=== PATIENT | male | born 1945 | race Caucasian/White ===

== ENCOUNTER 2018-01-05 14:04 | Outpatient (CLI) | payer OTHER | END 2018-01-05 14:10 | disposition home or self-care (01) | LOC: NUCLEAR 14:04 | DX: M81.0 Age-related osteoporosis without current pathological fracture (principal) ==

== ENCOUNTER 2018-04-11 09:31 | Outpatient (CLI) | payer OTHER | END 2018-04-11 10:30 | disposition home or self-care (01) | LOC: NUCLEAR 09:31 | DX: E23.1 Drug-induced hypopituitarism (principal); R94.6 Abnormal results of thyroid function studies | CPT/HCPCS: 78070; A9500 ==

== ENCOUNTER 2024-10-10 18:52 | Inpatient (IN) | payer OTHER ==
[~2024-10-10] VITALS: Ht 152.4 cm; Wt 81.6 kg
--- NOTE | 2024-10-10 19:43 | NUR ---
PTE ALERTA Y ORIENTADO X 3 ESFERAS EN [place] DE [place] EN COMPANIA DE FAMILIAR QUIEN REFIERE PTE CON FALLO RENAL POR LABS REALIZADOS EN EL ANKIT DE HOY.PTE REFIERE DOLOR EN TODO EL CUERPO Y SE OBSERVAN AMBAS PIERNAS EDEMATOSAS.SE PRESENTA PTE A DRA SCHULTZ.
[2024-10-10] MEDS ORDERED: COZAAR25 MG (19:46)
[2024-10-10] MEDS ORDERED: TOPROL XL50 M1 (19:46)
--- NOTE | 2024-10-10 20:48 | NUR ---
SE UBICA A PTE EN CAMA EN POSICION SEMI SENTADA. SE CONECTA A MONITOR CARADIACO Y OXIMETRIA. PTE ALERTA Y ORIENTADA X3, SE BEATRIS S/V. SE CANALIZA A PTE EN BRAZO IZQ Y SE BEATRIS MUESTRAS DE LABORATORIO DMITRY ORDEN MEDICA, BAJO MEDIDAS ASEPTICAS. SE ORIENTA A PTE QUIEN REFIERE ENTENDER Y ACEPTAR. SE REALIZA EKG A DR. SCHULTZ Y SE PRESENTA. SE MANTIENE BAJO OBSERVACION POR CAMBIO A PTE.
[2024-10-10 20:49] LABS: ABG PH 7.279 (7.35-7.45); ABG PO2 117.7 mmHg (80-100); ABG pCO2 20.2 mmHg (35-45); BICARBONATE 9.3 mmol/l (23-25); SaO2 97.6 %; Tco2 9.9 mmol/l
[2024-10-10 20:49] LABS: HEMATOCRIT 32.6 % (39.0-48.0); HEMOGLOBIN 10.1 g/dL (13-16.00); MEAN CELL VOLUME 82.4 fL (80.0-100.00); MEAN CORPUSCULAR HEMOGLOBIN 25.6 pg (27.00-32.0); PLATELET COUNT 331 K/uL (150-450); RED BLOOD COUNT 3.96 M/uL (4.00-6.00); RED CELL DISTRIBUTION WIDTH 18.7 % (11.5-14.5)
[2024-10-10 21:03] LABS: INR 1.21
[2024-10-10 21:14] LABS: ALBUMIN 2.6 gm/dL (3.4-5.0); BILIRUBIN TOTAL 0.37 mg/dL (0.3-1.2); BILIRUBIN,CONJUGATED 0.13 mg/dL (0.0-0.2); BILIRUBIN,UNCONJUGATED 0.24 mg/dL (0.0-0.6); CALCIUM 8.8 mg/dL (8.5-10.1); GLOBULINA 4.1 G/DL (2.4-3.5); TOTAL PROTEIN 6.7 gm/dL (6.4-8.2)
[2024-10-10 21:22] LABS: GFR 10.6
[2024-10-10 21:23] LABS: CREATININE SERUM 5.24 mg/dL (0.70-1.30); POTASSIUM 7.62 mEq/L (3.5-5.1)
[2024-10-10 21:26] LABS: allen test SATISFACTORY; o2 21 %; puncture site RADIAL RIGHT
[2024-10-10] MEDS ORDERED: SODIUM BICARBONATE 50 MEQ in SODIUM CHLORIDE 0.45 % 1,000 ML IV SCH (21:45)
[2024-10-10] MEDS ORDERED: INSULIN REGULAR, HUMAN 1,000 UNIT/10 ML UNITS IV ONE (21:45)
[2024-10-10] MEDS ORDERED: DEXTROSE 50 % IN WATER 0.5 G/ML VIAL IV ONE (21:45)
[2024-10-10] MEDS ORDERED: DEXTROSE 50 % IN WATER 0.5 G/ML DISP.SYRIN IV ONE (21:55)
[2024-10-10] MEDS ORDERED: CALCIUM GLUCONATE 100 MG/ML VIAL ONE (21:55)
[2024-10-10] MEDS ORDERED: SODIUM BICARBONATE 50MEQ/50ML VIAL IV ONE (21:56)
[2024-10-10] MEDS ORDERED: INSULIN REGULAR, HUMAN 1,000 UNIT/10 ML UNITS ONE (21:57)
[2024-10-10] MEDS ORDERED: CALCIUM GLUCONATE 100 MG/ML VIAL IV ONE (22:00)
[2024-10-10] MEDS ORDERED: SODIUM POLYSTYRENE SULFONATE 15 G/4 TSP TSP PO ONE (22:00)
[2024-10-10 22:11] LABS: URINE APPEARANCE Clear; URINE BILIRRUBIN Negative (NEGATIVE); URINE BLOOD Small; URINE COLOR Yellow; URINE GLUCOSE Negative (NEGATIVE); URINE KETONE Negative (NEGATIVE); URINE LEUKOCYTE Negative; URINE NITRATE Negative; URINE PROTEIN 30 (NEGATIVE); URINE UROBILINOGEN 0.2 E.U./dl
[2024-10-10 22:15] LABS: URINE BACTERIA 70.9 uL (0.0-1933); URINE WBC 27.3 uL (0.0-23.2)
[2024-10-10 22:26] LABS: URINE CAST 0.88 uL (0.0-1.40)
[2024-10-10] MEDS ORDERED: CEFTRIAXONE SODIUM 2,000 MG in 0.9 % SODIUM CHLORIDE 100 ML IV SCH (23:21)
[2024-10-10] MEDS ORDERED: SODIUM POLYSTYRENE SULFONATE 15 G/4 TSP TSP PO SCH (23:22)
[2024-10-10] MEDS ORDERED: ACETAMINOPHEN 500 MG GEL..CAP PO PRN (23:30)
[2024-10-10] MEDS ORDERED: 0.9 % SODIUM CHLORIDE 1,000 ML IV SCH (23:30)
[2024-10-11 00:24] VITALS: BP 138/57
[2024-10-11] MEDS ORDERED: CEFTRIAXONE SODIUM 2,000 MG VIAL ONE (03:33)
[2024-10-11 04:52] LABS: MAGNESIUM 1.6 mg/dL (1.8-2.4)
[2024-10-11 07:30] VITALS: BP 113/76; O2SAT 100
[2024-10-11] MEDS ORDERED: SODIUM BICARBONATE 50MEQ/50ML VIAL IV ONE ×2 (08:03→16:26)
[2024-10-11 08:38] LABS: CALCIUM 8.6 mg/dL (8.5-10.1)
[2024-10-11 08:40] LABS: GFR 11.49
[2024-10-11 08:41] LABS: POTASSIUM 7.42 mEq/L (3.5-5.1)
[2024-10-11 08:42] LABS: CREATININE SERUM 4.89 mg/dL (0.70-1.30)
[2024-10-11] MEDS ORDERED: METOPROLOL SUCCINATE 25 MG TAB.SR.24H PO SCH (09:00)
[2024-10-11] MEDS ORDERED: SODIUM POLYSTYRENE SULFONATE 30G/8 TSP PO SCH ×2 (09:00→16:00)
[2024-10-11] MEDS ORDERED: ENOXAPARIN SODIUM 80 MG/0.8 ML SYRINGE SUBCUTANEO SCH (09:00)
[2024-10-11] MEDS ORDERED: PANTOPRAZOLE SODIUM 40 MG/VIAL VIAL IV SCH (09:00)
[2024-10-11] MEDS ORDERED: CHLORHEXIDINE GLUCONATE 120 ML BOTTLE TOP ONE (11:45)
[2024-10-11] MEDS ORDERED: AZTREONAM 1,000 MG VIAL IV SCH (13:59)
[2024-10-11 14:46] LABS: CALCIUM 8.7 mg/dL (8.5-10.1)
[2024-10-11 14:51] LABS: GFR 11.91
[2024-10-11 14:52] LABS: POTASSIUM 7.09 mEq/L (3.5-5.1)
[2024-10-11 14:53] LABS: CREATININE SERUM 4.74 mg/dL (0.70-1.30)
[2024-10-11] MEDS ORDERED: LACTULOSE 20 G/30 ML BLIST.PACK PO STA (14:58)
[2024-10-11] MEDS ORDERED: SODIUM BICARBONATE 50MEQ/50ML VIAL IV STA (14:59)
[2024-10-11 15:00] VITALS: BP 130/58; O2SAT 100
[2024-10-11] MEDS ORDERED: LACTULOSE 20 G/30 ML BLIST.PACK ONE (16:25)
[2024-10-11 23:15] VITALS: BP 104/59; O2SAT 100
[2024-10-12] VITALS (11 sets, daily range): BP systolic 94–120; BP diastolic 50–78; O2SAT 98–100
[2024-10-12 06:48] LABS: ALBUMIN 1.8 gm/dL (3.4-5.0); PHOSPHOROUS 4.7 mg/dL (2.5-4.9)
[2024-10-12 07:23] LABS: GFR 13.11
[2024-10-12 07:24] LABS: CREATININE SERUM 4.36 mg/dL (0.70-1.30); POTASSIUM 6.23 mEq/L (3.5-5.1)
[2024-10-12] MEDS ORDERED: 0.9 % SODIUM CHLORIDE 1,000 ML IV SCH (08:00)
[2024-10-12] MEDS ORDERED: SODIUM BICARBONATE 100 MEQ in DEXTROSE 5 % IN WATER 250 ML IV SCH (08:00)
[2024-10-12] MEDS ORDERED: FUROsemide 20 MG/2 ML VIAL IV STA (08:04)
[2024-10-12] MEDS ORDERED: ACETAMINOPHEN 500 MG GEL..CAP PO PRN (08:11)
[2024-10-12] MEDS ORDERED: CHLORHEXIDINE GLUCONATE 120 ML BOTTLE TOP ONE (08:54)
[2024-10-12] MEDS ORDERED: CITRIC ACID/SODIUM CITRATE 30 ML BLIST.PACK PO SCH (09:00)
[2024-10-12] MEDS ORDERED: AMINO ACIDS/PROTEIN HYDROLYS 30 ML BLIST.PACK PO SCH (09:00)
[2024-10-12] MEDS ORDERED: SODIUM POLYSTYRENE SULFONATE 30G/8 TSP PO SCH (09:00)
[2024-10-12] MEDS ORDERED: APIXABAN 2.5 MG TABLET PO SCH (09:00)
[2024-10-12] MEDS ORDERED: CALCITRIOL 0.25 MCG CAPSULE PO SCH (09:00)
[2024-10-12] MEDS ORDERED: FLUDROCORTISONE ACETATE 0.1 MG TABLET PO SCH (09:36)
[2024-10-12] MEDS ORDERED: DEXTROSE 5 % AND 0.9 % NACL 1,000 ML IV SCH (09:45)
[2024-10-12 10:32] LABS: ABG PH 7.365 (7.35-7.45); ABG PO2 102.7 mmHg (80-100); ABG pCO2 25.7 mmHg (35-45); BICARBONATE 14.4 mmol/l (23-25); SaO2 97.4 %; Tco2 15.2 mmol/l
[2024-10-12] MEDS ORDERED: Calcium Acetate 667 MG CAP PO SCH (11:00)
[2024-10-12] MEDS ORDERED: SODIUM BICARBONATE 50MEQ/50ML VIAL IV ONE (11:04)
[2024-10-12 11:54] LABS: allen test SATISFACTORY; o2 28 %; puncture site RADIAL RIGHT
[2024-10-13 04:05] VITALS: BP 110/60; O2SAT 100
[2024-10-13] MEDS ORDERED: SODIUM BICARBONATE 50MEQ/50ML VIAL IV ONE (04:59)
[2024-10-13 07:16] VITALS: BP 109/60; O2SAT 100
[2024-10-13] MEDS ORDERED: NOREPINEPHRINE BITARTRATE 1 MG/ML AMPUL IV ONE (07:41)
[2024-10-13 08:25] LABS: FERRITIN 143.8 NG/ML (26-388)
[2024-10-13 08:28] LABS: ALBUMIN 1.6 gm/dL (3.4-5.0); BILIRUBIN TOTAL 0.26 mg/dL (0.3-1.2); CALCIUM 7.9 mg/dL (8.5-10.1); CREATININE SERUM 3.63 mg/dL (0.70-1.30); GFR 16.2; GLOBULINA 3.3 G/DL (2.4-3.5); POTASSIUM 4.44 mEq/L (3.5-5.1); TOTAL PROTEIN 4.9 gm/dL (6.4-8.2)
[2024-10-13 08:36] LABS: MEAN CELL VOLUME 80.5 fL (80.0-100.00); MEAN CORPUSCULAR HGB CONC 32.5 g/dl (32.0-36.0); PLATELET COUNT 279 K/uL (150-450); RED BLOOD COUNT 2.86 M/uL (4.00-6.00); RED CELL DISTRIBUTION WIDTH 18.3 % (11.5-14.5)
[2024-10-13 08:42] LABS: MEAN CORPUSCULAR HEMOGLOBIN 26.2 pg (27.00-32.0)
[2024-10-13 08:43] LABS: HEMOGLOBIN 7.5 g/dL (13-16.00)
[2024-10-13] MEDS ORDERED: CHLORHEXIDINE GLUCONATE 120 ML BOTTLE TOP ONE (10:10)
[2024-10-13] MEDS ORDERED: SODIUM CHLORIDE 0.45 % 1,000 ML IV SCH (11:15)
[2024-10-13] MEDS ORDERED: FUROsemide 20 MG/2 ML VIAL IV SCH (11:15)
[2024-10-13 15:27] LABS: ABG PH 7.338 (7.35-7.45); ABG PO2 114.1 mmHg (80-100); ABG pCO2 30.9 mmHg (35-45); BASE EXCESS -8.2 mmol/l; BICARBONATE 16.3 mmol/l (23-25); SaO2 97.9 %; Tco2 17.2 mmol/l
[2024-10-13 15:31] LABS: o2 28 %
[2024-10-13 15:32] LABS: allen test SATISFACTORY; puncture site RADIAL LEFT
[2024-10-13 15:37] VITALS: BP 113/67; O2SAT 100
[2024-10-13] MEDS ORDERED: DEXTROSE 5%-WATER 250ML IV.SOLN ONE ×2 (16:49→16:50)
[2024-10-13] MEDS ORDERED: CITRIC ACID/SODIUM CITRATE 30 ML BLIST.PACK PO SCH (17:00)
[2024-10-13 18:51] LABS: ob NEGATIVE (NEGATIVE)
[2024-10-13 20:00] VITALS: BP 115/64; O2SAT 100
[2024-10-13 23:12] VITALS: BP 115/66; O2SAT 99
[2024-10-14 04:00] VITALS: BP 94/47; O2SAT 100
[2024-10-14 07:13] VITALS: BP 108/54; O2SAT 100
[2024-10-14 12:04] VITALS: BP 100/50; O2SAT 100
[2024-10-14] MEDS ORDERED: FUROsemide 20 MG/2 ML VIAL IV STA (13:49)
[2024-10-14 15:32] VITALS: BP 126/71; O2SAT 99
[2024-10-14 16:07] LABS: ALBUMIN 1.8 gm/dL (3.4-5.0); BILIRUBIN TOTAL 0.75 mg/dL (0.3-1.2); CALCIUM 7.6 mg/dL (8.5-10.1); CREATININE SERUM 3.19 mg/dL (0.70-1.30); GFR 18.8; GLOBULINA 3.1 G/DL (2.4-3.5); POTASSIUM 4.02 mEq/L (3.5-5.1); TOTAL PROTEIN 4.9 gm/dL (6.4-8.2)
[2024-10-14 16:11] LABS: HEMATOCRIT 29.7 % (39.0-48.0); MEAN CELL VOLUME 82.1 fL (80.0-100.00); MEAN CORPUSCULAR HEMOGLOBIN 26.5 pg (27.00-32.0); MEAN CORPUSCULAR HGB CONC 32.3 g/dl (32.0-36.0); PLATELET COUNT 254 K/uL (150-450); RED BLOOD COUNT 3.62 M/uL (4.00-6.00); RED CELL DISTRIBUTION WIDTH 17.4 % (11.5-14.5)
[2024-10-14 16:15] LABS: HEMOGLOBIN 9.6 g/dL (13-16.00)
[2024-10-14] MEDS ORDERED: SOD FERRIC GLUC COMPLX/SUCROSE 125 MG in 0.9 % SODIUM CHLORIDE 100 ML IV SCH (17:00)
[2024-10-14] MEDS ORDERED: Cyanocobalamin/Mecobalamin 1 TAB.SL SL SCH (17:00)
[2024-10-14 18:51] LABS: ABG PH 7.383 (7.35-7.45); ABG PO2 105.4 mmHg (80-100)
[2024-10-14 18:52] LABS: SaO2 97.8 %; allen test SATISFACTORY; o2 28 %; puncture site RADIAL LEFT
[2024-10-14 18:53] LABS: ABG pCO2 32.5 mmHg (35-45)
[2024-10-14 20:00] VITALS: BP 119/71; O2SAT 98
[2024-10-14] MEDS ORDERED: FUROsemide 20 MG/2 ML VIAL IV SCH (21:00)
[2024-10-14 23:08] VITALS: BP 104/86; O2SAT 98
[2024-10-15 04:00] VITALS: BP 113/58; O2SAT 98
[2024-10-15 07:11] LABS: HEMATOCRIT 27.6 % (39.0-48.0); MEAN CELL VOLUME 80.9 fL (80.0-100.00); MEAN CORPUSCULAR HGB CONC 33.6 g/dl (32.0-36.0); PLATELET COUNT 231 K/uL (150-450); RED BLOOD COUNT 3.42 M/uL (4.00-6.00); RED CELL DISTRIBUTION WIDTH 17.8 % (11.5-14.5)
[2024-10-15 07:18] LABS: HEMOGLOBIN 9.3 g/dL (13-16.00); MEAN CORPUSCULAR HEMOGLOBIN 27.1 pg (27.00-32.0)
[2024-10-15 07:21] VITALS: BP 91/56; O2SAT 98
[2024-10-15 07:35] LABS: ALBUMIN 1.7 gm/dL (3.4-5.0); BILIRUBIN TOTAL 0.4 mg/dL (0.3-1.2); CALCIUM 7.6 mg/dL (8.5-10.1); CREATININE SERUM 3.12 mg/dL (0.70-1.30); GFR 19.29; GLOBULINA 3.1 G/DL (2.4-3.5); POTASSIUM 4.17 mEq/L (3.5-5.1); TOTAL PROTEIN 4.8 gm/dL (6.4-8.2)
[2024-10-15 12:00] VITALS: BP 105/60; O2SAT 99
[2024-10-15 12:03] LABS: FOLIC ACID 2.73 ng/ml (4.78-20)
[2024-10-15 16:09] VITALS: BP 100/58; O2SAT 99
[2024-10-15 20:45] VITALS: BP 139/67; O2SAT 97
[2024-10-15] MEDS ORDERED: FUROsemide 20 MG/2 ML VIAL IV SCH (21:00)
[2024-10-16] VITALS: BP 152/90; O2SAT 96
[2024-10-16] MEDS ORDERED: FUROsemide 20 MG/2 ML VIAL IV STA (03:40)
[2024-10-16 04:00] LABS: ABG PH 7.307 (7.35-7.45); ABG PO2 95.2 mmHg (80-100); ABG pCO2 47.5 mmHg (35-45); BASE EXCESS -3.4 mmol/l; BICARBONATE 23.3 mmol/l (23-25); SaO2 96.4 %; Tco2 24.7 mmol/l
[2024-10-16 04:04] LABS: allen test SATISFACTORY; o2 40 %; puncture site RADIAL RIGHT
[2024-10-16 05:54] VITALS: O2SAT 128
[2024-10-16 07:27] LABS: HEMATOCRIT 33.7 % (39.0-48.0); MEAN CELL VOLUME 81.7 fL (80.0-100.00); MEAN CORPUSCULAR HEMOGLOBIN 26.8 pg (27.00-32.0); MEAN CORPUSCULAR HGB CONC 32.8 g/dl (32.0-36.0); PLATELET COUNT 277 K/uL (150-450); RED BLOOD COUNT 4.12 M/uL (4.00-6.00)
[2024-10-16 08:00] VITALS: BP 153/89; O2SAT 94
[2024-10-16 08:14] LABS: ALBUMIN 2.1 gm/dL (3.4-5.0); BILIRUBIN TOTAL 0.29 mg/dL (0.3-1.2); CALCIUM 8.5 mg/dL (8.5-10.1); CREATININE SERUM 3.09 mg/dL (0.70-1.30); GFR 19.51; GLOBULINA 3.7 G/DL (2.4-3.5); MAGNESIUM 1.5 mg/dL (1.8-2.4); PHOSPHOROUS 5.2 mg/dL (2.5-4.9); POTASSIUM 4.24 mEq/L (3.5-5.1); TOTAL PROTEIN 5.8 gm/dL (6.4-8.2)
[2024-10-16] MEDS ORDERED: BUMETANIDE 2.5 MG/10 ML VIAL IV SCH (09:00)
[2024-10-16] MEDS ORDERED: METOPROLOL SUCCINATE 50 MG TAB.SR.24H PO SCH (09:00)
[2024-10-16 12:00] VITALS: BP 136/78; O2SAT 95
[2024-10-16 16:00] VITALS: BP 163/70; O2SAT 94
[2024-10-16] MEDS ORDERED: LINEZOLID 600 MG TABLET PO SCH (17:00)
[2024-10-16] MEDS ORDERED: DILTIAZEM HCL 125 MG in 0.9 % SODIUM CHLORIDE 125 ML IV SCH (23:45)
[2024-10-17] VITALS (19 sets, daily range): BP systolic 75–157; BP diastolic 55–97; O2SAT 78–100
[2024-10-17] MEDS ORDERED: SODIUM BICARBONATE 1 MEQ/ML DISP.SYRIN 50ML IV STA (01:08)
[2024-10-17] MEDS ORDERED: SODIUM BICARBONATE 150 MEQ in DEXTROSE 5 % IN WATER 1,000 ML IV SCH (01:15)
[2024-10-17 01:58] LABS: ABG PH 7.216 (7.35-7.45); ABG pCO2 58.9 mmHg (35-45); BASE EXCESS -5.4 mmol/l; SaO2 68.8 %
[2024-10-17 01:59] LABS: ABG PO2 44.8 mmHg (80-100); BICARBONATE 23.3 mmol/l (23-25); Tco2 25.1 mmol/l; allen test SATISFACTORY; o2 50 %; puncture site RADIAL LEFT
[2024-10-17] MEDS ORDERED: HYDROCORTISONE SODIUM SUCC/PF 100 MG VIAL IV STA (07:04)
[2024-10-17] MEDS ORDERED: LEVALBUTEROL HCL 1.25 MG/3 ML SOLUTION IH SCH (07:05)
[2024-10-17] MEDS ORDERED: GUAIFENESIN 200 MG/10 ML BLIST.PACK PO SCH (07:06)
[2024-10-17 07:39] LABS: HEMATOCRIT 38.4 % (39.0-48.0); HEMOGLOBIN 12.1 g/dL (13-16.00); MEAN CELL VOLUME 83.5 fL (80.0-100.00); MEAN CORPUSCULAR HEMOGLOBIN 26.3 pg (27.00-32.0); MEAN CORPUSCULAR HGB CONC 31.5 g/dl (32.0-36.0); PLATELET COUNT 309 K/uL (150-450); RED CELL DISTRIBUTION WIDTH 17.6 % (11.5-14.5)
[2024-10-17] MEDS ORDERED: MAGNESIUM SULFATE/D5W 1GM/100ML PIGGYBAG IV NR (07:45)
[2024-10-17 08:04] LABS: ALBUMIN 2.2 gm/dL (3.4-5.0); CALCIUM 8.7 mg/dL (8.5-10.1); CREATININE SERUM 3.67 mg/dL (0.70-1.30); GFR 15.99; PHOSPHOROUS 6.9 mg/dL (2.5-4.9); POTASSIUM 4.51 mEq/L (3.5-5.1)
[2024-10-17 08:15] LABS: ABG PO2 244.8 mmHg (80-100); BASE EXCESS -2.2 mmol/l; BICARBONATE 26.3 mmol/l (23-25); SaO2 99.7 %; Tco2 28.2 mmol/l
[2024-10-17 08:29] LABS: ABG pCO2 61.4 mmHg (35-45); allen test NO SATISFACTORY; o2 100 %; puncture site RADIAL RIGHT
[2024-10-17] MEDS ORDERED: BUDESONIDE 0.5 MG/2 ML AMPUL.NEB IH SCH (09:00)
[2024-10-17] MEDS ORDERED: ENOXAPARIN SODIUM 40 MG/0.4 ML SYRINGE SUBCUTANEO SCH (09:00)
[2024-10-17] MEDS ORDERED: ENOXAPARIN SODIUM 80 MG/0.8 ML SYRINGE SUBCUTANEO SCH (09:00)
[2024-10-17] MEDS ORDERED: PANTOPRAZOLE SODIUM 40 MG/VIAL VIAL IV PUSH SCH (09:00)
[2024-10-17] MEDS ORDERED: BUMETANIDE 2.5 MG/10 ML VIAL IV SCH (09:00)
[2024-10-17] MEDS ORDERED: IPRATROPIUM BROMIDE 0.5 MG/2.5 ML AMPUL.NEB IH SCH (09:00)
[2024-10-17] MEDS ORDERED: LACTULOSE 20 G/30 ML BLIST.PACK PO SCH (09:00)
[2024-10-17] MEDS ORDERED: POLYVINYL ALCOHOL 15 ML DROPS OP SCH (10:40)
[2024-10-17] MEDS ORDERED: CHLORHEXIDINE GLUCONATE 15ML BRUSH KIT MM SCH (10:40)
[2024-10-17 11:08] LABS: ABG PO2 248.7 mmHg (80-100); ABG pCO2 49.6 mmHg (35-45); BASE EXCESS -3.7 mmol/l; BICARBONATE 23.3 mmol/l (23-25); SaO2 99.8 %; Tco2 24.8 mmol/l
[2024-10-17 11:12] LABS: allen test NO SATISFACTORY; o2 100 %; puncture site RADIAL RIGHT
[2024-10-17] MEDS ORDERED: METROnidazole 500 MG TABLET PO SCH (13:00)
[2024-10-17] MEDS ORDERED: HYDROCORTISONE SODIUM SUCC/PF 50 MG/ML ML IV SCH (14:00)
[2024-10-17] MEDS ORDERED: 0.9 % SODIUM CHLORIDE 1,000 ML IV STA (14:18)
[2024-10-17] MEDS ORDERED: PROPOFOL 100 ML IV SCH (15:00)
[2024-10-17] MEDS ORDERED: LINEZOLID IN DEXTROSE 5% 300 ML IV SCH (17:00)
[2024-10-17] MEDS ORDERED: 0.9 % SODIUM CHLORIDE 1,000 ML IV SCH (19:15)
[2024-10-18] VITALS (24 sets, daily range): BP systolic 88–149; BP diastolic 58–92; O2SAT 96–180
[2024-10-18 09:06] LABS: ABG PH 7.426 (7.35-7.45); ABG pCO2 34.6 mmHg (35-45); BASE EXCESS -1.4 mmol/l; BICARBONATE 22.2 mmol/l (23-25); SaO2 99.5 %; Tco2 23.3 mmol/l
[2024-10-18 09:56] LABS: HEMOGLOBIN 10.5 g/dL (13-16.00); MEAN CELL VOLUME 82.7 fL (80.0-100.00); MEAN CORPUSCULAR HEMOGLOBIN 26.3 pg (27.00-32.0); MEAN CORPUSCULAR HGB CONC 31.8 g/dl (32.0-36.0); PLATELET COUNT 234 K/uL (150-450); RED BLOOD COUNT 3.99 M/uL (4.00-6.00); RED CELL DISTRIBUTION WIDTH 18.4 % (11.5-14.5)
[2024-10-18 11:06] LABS: ALBUMIN 1.7 gm/dL (3.4-5.0); BILIRUBIN TOTAL 0.34 mg/dL (0.3-1.2); CALCIUM 8.4 mg/dL (8.5-10.1); CREATININE SERUM 3.85 mg/dL (0.70-1.30); GFR 15.13; GLOBULINA 3.5 G/DL (2.4-3.5); MAGNESIUM 1.8 mg/dL (1.8-2.4); PHOSPHOROUS 4.8 mg/dL (2.5-4.9); POTASSIUM 3.76 mEq/L (3.5-5.1); TOTAL PROTEIN 5.2 gm/dL (6.4-8.2)
[2024-10-18 11:10] LABS: allen test SATISFACTORY; o2 60 %; puncture site RADIAL LEFT
[2024-10-19] VITALS (20 sets, daily range): BP systolic 93–128; BP diastolic 54–77; O2SAT 95–100
[2024-10-19 08:26] LABS: ALBUMIN 1.7 gm/dL (3.4-5.0); BILIRUBIN TOTAL 0.39 mg/dL (0.3-1.2); CALCIUM 8.1 mg/dL (8.5-10.1); GFR 14.87; GLOBULINA 3.4 G/DL (2.4-3.5); POTASSIUM 3.34 mEq/L (3.5-5.1); TOTAL PROTEIN 5.1 gm/dL (6.4-8.2)
[2024-10-19] MEDS ORDERED: SODIUM CHLORIDE 0.45 % 1,000 ML IV SCH (09:45)
[2024-10-19 10:17] LABS: CREATININE SERUM 3.91 mg/dL (0.70-1.30)
[2024-10-19] MEDS ORDERED: POTASSIUM CHLORIDE 20MEQ/100ML H2O PB IV NR (10:30)
[2024-10-19 13:02] LABS: ABG PH 7.336 (7.35-7.45); ABG PO2 156.2 mmHg (80-100); ABG pCO2 39.4 mmHg (35-45); BASE EXCESS -4.8 mmol/l; BICARBONATE 20.6 mmol/l (23-25); SaO2 99.2 %; Tco2 21.8 mmol/l
[2024-10-19 16:22] LABS: ABG PH 7.296 (7.35-7.45); ABG PO2 66.8 mmHg (80-100); ABG pCO2 44.7 mmHg (35-45); BASE EXCESS -5.2 mmol/l; BICARBONATE 21.3 mmol/l (23-25); Tco2 22.7 mmol/l
[2024-10-19] MEDS ORDERED: PROPOFOL 100 ML IV SCH (17:00)
[2024-10-19 20:07] LABS: ABG PH 7.341 (7.35-7.45); ABG PO2 327.9 mmHg (80-100); ABG pCO2 39.5 mmHg (35-45); BASE EXCESS -4.4 mmol/l; BICARBONATE 20.9 mmol/l (23-25); SaO2 99.9 %; Tco2 22.1 mmol/l
[2024-10-19 20:19] LABS: allen test SATISFACTORY; o2 60 %; puncture site RADIAL LEFT
[2024-10-19 20:21] LABS: o2 50 %
[2024-10-19 20:22] LABS: allen test SATISFACTORY; puncture site RADIAL LEFT
[2024-10-19 21:08] LABS: allen test SATISFACTORY; o2 100 %; puncture site RADIAL RIGHT
[2024-10-20] VITALS (20 sets, daily range): BP systolic 103–122; BP diastolic 55–76; O2SAT 96–100
[2024-10-20 08:00] LABS: ALBUMIN 1.6 gm/dL (3.4-5.0); BILIRUBIN TOTAL 0.38 mg/dL (0.3-1.2); CALCIUM 7.8 mg/dL (8.5-10.1); CREATININE SERUM 3.75 mg/dL (0.70-1.30); GFR 15.6; GLOBULINA 3.2 G/DL (2.4-3.5); POTASSIUM 3.34 mEq/L (3.5-5.1); TOTAL PROTEIN 4.8 gm/dL (6.4-8.2)
[2024-10-20 09:04] LABS: ABG PH 7.409 (7.35-7.45); ABG PO2 214.7 mmHg (80-100); ABG pCO2 31.7 mmHg (35-45); BASE EXCESS -3.9 mmol/l; BICARBONATE 19.6 mmol/l (23-25); SaO2 99.7 %; Tco2 20.5 mmol/l
[2024-10-20 09:56] LABS: allen test SATISFACTORY; o2 70 %; puncture site RADIAL RIGHT
[2024-10-20] MEDS ORDERED: AMIODARONE HCL 200 MG TABLET NGT SCH (21:00)
[2024-10-21] VITALS (13 sets, daily range): BP systolic 92–117; BP diastolic 51–71; O2SAT 93–100
[2024-10-21 07:55] LABS: ALBUMIN 1.5 gm/dL (3.4-5.0); CALCIUM 7.9 mg/dL (8.5-10.1); CREATININE SERUM 3.69 mg/dL (0.70-1.30); GFR 15.89; PHOSPHOROUS 4.5 mg/dL (2.5-4.9); POTASSIUM 3.15 mEq/L (3.5-5.1)
[2024-10-21 08:55] LABS: ABG PH 7.351 (7.35-7.45); ABG PO2 142.3 mmHg (80-100); ABG pCO2 33.5 mmHg (35-45); BASE EXCESS -6.4 mmol/l; BICARBONATE 18.1 mmol/l (23-25); Tco2 19.1 mmol/l
[2024-10-21 09:03] LABS: allen test SATISFACTORY; o2 50 %; puncture site RADIAL RIGHT
[2024-10-21] MEDS ORDERED: fentaNYL CITRATE 50 MCG/ML AMPUL IV SCH (10:30)
[2024-10-21] MEDS ORDERED: FentaNYL CITRATE/PF 1,000 MCG in 0.9 % SODIUM CHLORIDE 100 ML IV SCH (10:30)
[2024-10-21] MEDS ORDERED: FUROsemide 40 MG/4 ML VIAL IV SCH (10:32)
[2024-10-22] VITALS (10 sets, daily range): BP systolic 104–140; BP diastolic 56–71; O2SAT 94–98
[2024-10-22 06:24] LABS: HEMATOCRIT 31.4 % (39.0-48.0); MEAN CELL VOLUME 82.6 fL (80.0-100.00); MEAN CORPUSCULAR HEMOGLOBIN 26.4 pg (27.00-32.0); PLATELET COUNT 172 K/uL (150-450); RED CELL DISTRIBUTION WIDTH 18.7 % (11.5-14.5)
[2024-10-22 07:35] LABS: ALBUMIN 1.6 gm/dL (3.4-5.0); BILIRUBIN TOTAL 0.42 mg/dL (0.3-1.2); CALCIUM 8.2 mg/dL (8.5-10.1); CREATININE SERUM 3.61 mg/dL (0.70-1.30); GFR 16.3; GLOBULINA 3.4 G/DL (2.4-3.5); POTASSIUM 3.28 mEq/L (3.5-5.1)
[2024-10-22] MEDS ORDERED: FUROsemide 40 MG/4 ML VIAL IV SCH (09:00)
[2024-10-22] MEDS ORDERED: SPIRONOLACTONE 25 MG TABLET PO SCH (09:00)
[2024-10-22] MEDS ORDERED: ALBUMIN HUMAN 100 ML VIAL IV SCH (09:00)
[2024-10-22] MEDS ORDERED: METOLAZONE 5 MG TABLET PO SCH (09:00)
[2024-10-22 10:22] LABS: ABG PH 7.269 (7.35-7.45); ABG PO2 96.4 mmHg (80-100); ABG pCO2 42.2 mmHg (35-45); BASE EXCESS -7.7 mmol/l; BICARBONATE 18.9 mmol/l (23-25); SaO2 95.9 %; Tco2 20.2 mmol/l
[2024-10-22 11:22] LABS: o2 50 %
[2024-10-22 11:23] LABS: allen test SATISFACTORY; puncture site RADIAL LEFT
[2024-10-23] VITALS (15 sets, daily range): BP systolic 99–144; BP diastolic 52–72; O2SAT 92–100
[2024-10-23 08:55] LABS: ABG PH 7.289 (7.35-7.45); ABG PO2 81.4 mmHg (80-100); BASE EXCESS -5.5 mmol/l; BICARBONATE 21.1 mmol/l (23-25); Tco2 22.5 mmol/l
[2024-10-23 11:39] LABS: o2 50 %
[2024-10-23 11:40] LABS: allen test SATISFACTORY; puncture site RADIAL RIGHT
[2024-10-23 12:08] LABS: CALCIUM 8.5 mg/dL (8.5-10.1); GFR 16.62
[2024-10-23 12:11] LABS: CREATININE SERUM 3.55 mg/dL (0.70-1.30)
[2024-10-23 12:20] LABS: POTASSIUM 2.95 mEq/L (3.5-5.1)
[2024-10-23] MEDS ORDERED: FentaNYL CITRATE/PF 1,000 MCG in 0.9 % SODIUM CHLORIDE 100 ML IV SCH (12:45)
[2024-10-23] MEDS ORDERED: MAGNESIUM SULFATE/D5W 1GM/100ML PIGGYBAG IV NR (13:00)
[2024-10-23] MEDS ORDERED: POTASSIUM CHLORIDE IN WATER 40 MEQ/100 ML PIGGYBAG IV NR (13:00)
[2024-10-24] VITALS (14 sets, daily range): BP systolic 95–131; BP diastolic 59–77; O2SAT 92–100
[2024-10-24] MEDS ORDERED: WATER IV SCH (08:00)
[2024-10-24] MEDS ORDERED: SODIUM BICARBONATE IV SCH (08:00)
[2024-10-24] MEDS ORDERED: DEXTROSE 5% IV SCH (08:00)
[2024-10-24 08:29] LABS: HEMATOCRIT 32.3 % (39.0-48.0); HEMOGLOBIN 10.4 g/dL (13-16.00); MEAN CORPUSCULAR HEMOGLOBIN 26.4 pg (27.00-32.0); MEAN CORPUSCULAR HGB CONC 32.2 g/dl (32.0-36.0); PLATELET COUNT 175 K/uL (150-450); RED BLOOD COUNT 3.94 M/uL (4.00-6.00); RED CELL DISTRIBUTION WIDTH 18.9 % (11.5-14.5)
[2024-10-24] MEDS ORDERED: ENOXAPARIN SODIUM 40 MG/0.4 ML SYRINGE SUBCUTANEO SCH (09:00)
[2024-10-24 09:03] LABS: CALCIUM 8.7 mg/dL (8.5-10.1); GFR 14.4; POTASSIUM 3.41 mEq/L (3.5-5.1)
[2024-10-24 09:17] LABS: CREATININE SERUM 4.02 mg/dL (0.70-1.30)
[2024-10-24 09:49] LABS: BASE EXCESS -8.7 mmol/l; BICARBONATE 19.4 mmol/l (23-25); SaO2 92.3 %
[2024-10-24] MEDS ORDERED: PROPOFOL 100 ML IV SCH ×2 (11:15→18:00)
[2024-10-24 12:06] LABS: ABG PH 7.207 (7.35-7.45)
[2024-10-24 12:07] LABS: allen test SATISFACTORY; o2 50 %; puncture site RADIAL RIGHT
[2024-10-24] MEDS ORDERED: POTASSIUM CHLORIDE 20MEQ/100ML H2O PB IV NR (16:30)
[2024-10-24] MEDS ORDERED: MIDODRINE HCL 5 MG TABLET PO SCH (17:00)
[2024-10-25] VITALS (15 sets, daily range): BP systolic 73–132; BP diastolic 53–82; O2SAT 93–100
[2024-10-25] MEDS ORDERED: METOPROLOL TARTRATE 25 MG TABLET PO SCH (09:00)
[2024-10-25 10:39] LABS: ABG PO2 83.8 mmHg (80-100); ABG pCO2 42.3 mmHg (35-45); BICARBONATE 21.8 mmol/l (23-25); SaO2 95.2 %; Tco2 23.1 mmol/l
[2024-10-25 10:40] LABS: o2 55 %
[2024-10-25 10:41] LABS: allen test SATISFACTORY; puncture site RADIAL RIGHT
[2024-10-25 11:05] LABS: hav igm Negative (Negative); hcv Non Reactive (Non Reactive); hep b c Negative (Negative); hep b s ag Negative (Negative)
[2024-10-25] MEDS ORDERED: AZTREONAM 2,000 MG VIAL IV SCH (17:00)
[2024-10-26] VITALS (14 sets, daily range): BP systolic 89–148; BP diastolic 53–77; O2SAT 92–99
[2024-10-26 06:47] LABS: HEMATOCRIT 27.3 % (39.0-48.0); MEAN CELL VOLUME 81.1 fL (80.0-100.00); MEAN CORPUSCULAR HEMOGLOBIN 26.8 pg (27.00-32.0); MEAN CORPUSCULAR HGB CONC 33.1 g/dl (32.0-36.0); PLATELET COUNT 199 K/uL (150-450); RED BLOOD COUNT 3.37 M/uL (4.00-6.00); RED CELL DISTRIBUTION WIDTH 19.1 % (11.5-14.5)
[2024-10-26 07:03] LABS: ALBUMIN 2.2 gm/dL (3.4-5.0); BILIRUBIN TOTAL 0.58 mg/dL (0.3-1.2); CREATININE SERUM 3.71 mg/dL (0.70-1.30); GFR 15.8; TOTAL PROTEIN 5.2 gm/dL (6.4-8.2)
[2024-10-26 07:24] LABS: POTASSIUM 2.76 mEq/L (3.5-5.1)
[2024-10-26] MEDS ORDERED: MAGNESIUM SULFATE 50% 1,000 MG/2 ML VIAL IM NR (08:00)
[2024-10-26 08:54] LABS: ABG PH 7.399 (7.35-7.45); ABG PO2 84.8 mmHg (80-100); ABG pCO2 29.6 mmHg (35-45); BASE EXCESS -5.5 mmol/l; BICARBONATE 17.9 mmol/l (23-25); SaO2 96.2 %; Tco2 18.8 mmol/l
[2024-10-26] MEDS ORDERED: POTASSIUM CHLORIDE IN WATER 100 ML IV SCH (09:00)
[2024-10-26] MEDS ORDERED: MIDODRINE HCL 5 MG TABLET PO SCH ×2 (09:00)
[2024-10-26] MEDS ORDERED: levoFLOXacin IN DEXTROSE 5 % 5 MG/ML PIGGYBAG IV NR (09:30)
[2024-10-26 09:53] LABS: allen test SATISFACTORY; puncture site RADIAL RIGHT
[2024-10-26 09:54] LABS: o2 50 %
[2024-10-26 11:24] LABS: URINE APPEARANCE Turbid; URINE BACTERIA 285.1 uL (0.0-1933); URINE BILIRRUBIN Negative (NEGATIVE); URINE BLOOD Large; URINE COLOR Dark Yellow; URINE EPITHELIAL CELLS 18.8 uL (0.0-38.8); URINE GLUCOSE Negative (NEGATIVE); URINE KETONE Negative (NEGATIVE); URINE LEUKOCYTE Moderate; URINE NITRATE Negative; URINE UROBILINOGEN 0.2 E.U./dl
[2024-10-26 11:51] LABS: URINE PROTEIN 100 (NEGATIVE)
[2024-10-26 11:52] LABS: URINE CRYSTALS MANY /HPF
[2024-10-26 11:53] LABS: URINE YEAST MODERATE /hpf
[2024-10-27] VITALS (13 sets, daily range): BP systolic 90–151; BP diastolic 50–88; O2SAT 92–100
[2024-10-27 08:43] LABS: ABG PH 7.403 (7.35-7.45); ABG pCO2 30.9 mmHg (35-45); BASE EXCESS -4.6 mmol/l; BICARBONATE 18.9 mmol/l (23-25); SaO2 99.7 %; Tco2 19.8 mmol/l
[2024-10-27 09:04] LABS: allen test SATISFACTORY; o2 45 %; puncture site RADIAL RIGHT
[2024-10-27] MEDS ORDERED: HYDROCORTISONE SODIUM SUCC/PF 50 MG/ML ML IV SCH (13:00)
[2024-10-27 14:17] LABS: CALCIUM 8.2 mg/dL (8.5-10.1); CREATININE SERUM 3.14 mg/dL (0.70-1.30); GFR 19.15; PHOSPHOROUS 5.5 mg/dL (2.5-4.9); POTASSIUM 3.5 mEq/L (3.5-5.1)
[2024-10-27] MEDS ORDERED: MINOCYCLINE HCL 100 MG CAPSULE PO SCH (17:00)
[2024-10-27] MEDS ORDERED: SULFAMETHOXAZOLE/TRIMETHOPRIM 16 MG/ML 10ML VIAL IV SCH (21:00)
[2024-10-28] VITALS (13 sets, daily range): BP systolic 85–136; BP diastolic 50–71; O2SAT 93–100
[2024-10-28 08:50] LABS: ABG PH 7.395 (7.35-7.45); ABG PO2 108.2 mmHg (80-100); ABG pCO2 29.5 mmHg (35-45); BASE EXCESS -5.8 mmol/l; BICARBONATE 17.7 mmol/l (23-25); Tco2 18.6 mmol/l
[2024-10-28] MEDS ORDERED: levoFLOXacin IN DEXTROSE 5 % 500MG/100ML PIGGYBAG IV SCH (09:00)
[2024-10-28 09:28] LABS: allen test SATISFACTORY; o2 50 %; puncture site RADIAL LEFT
[2024-10-29] VITALS (14 sets, daily range): BP systolic 98–133; BP diastolic 55–73; O2SAT 96–100
[2024-10-29 06:49] LABS: HEMATOCRIT 27.1 % (39.0-48.0); MEAN CELL VOLUME 81.1 fL (80.0-100.00); MEAN CORPUSCULAR HEMOGLOBIN 26.9 pg (27.00-32.0); MEAN CORPUSCULAR HGB CONC 33.1 g/dl (32.0-36.0); PLATELET COUNT 273 K/uL (150-450); RED BLOOD COUNT 3.35 M/uL (4.00-6.00); RED CELL DISTRIBUTION WIDTH 19.2 % (11.5-14.5)
[2024-10-29 07:31] LABS: ALBUMIN 2.4 gm/dL (3.4-5.0); BILIRUBIN TOTAL 0.48 mg/dL (0.3-1.2); CALCIUM 8.5 mg/dL (8.5-10.1); CREATININE SERUM 3.83 mg/dL (0.70-1.30); GFR 15.23; GLOBULINA 3.4 G/DL (2.4-3.5); POTASSIUM 3.57 mEq/L (3.5-5.1); TOTAL PROTEIN 5.8 gm/dL (6.4-8.2)
[2024-10-29] MEDS ORDERED: MIDODRINE HCL 5 MG TABLET PO SCH (09:00)
[2024-10-29] MEDS ORDERED: EPOETIN ALFA-EPBX 10,000 UNIT/ML VIAL (Retacrit) SUBCUTANEO SCH (09:00)
[2024-10-29] MEDS ORDERED: FLUDROCORTISONE ACETATE 0.1 MG TABLET PO SCH (09:00)
[2024-10-29] MEDS ORDERED: ENOXAPARIN SODIUM 60 MG/0.6 ML SYRINGE SUBCUTANEO SCH (09:00)
[2024-10-29] MEDS ORDERED: SOD FERRIC GLUC COMPLX/SUCROSE 62.5 MG in 0.9 % SODIUM CHLORIDE 50 ML IV SCH (09:00)
[2024-10-29] MEDS ORDERED: HYDROCORTISONE SODIUM SUCC/PF 50 MG/ML ML IV SCH (13:00)
[2024-10-29 15:52] LABS: ABG PH 7.304 (7.35-7.45); ABG PO2 367.2 mmHg (80-100); ABG pCO2 36.4 mmHg (35-45); BASE EXCESS -7.8 mmol/l; BICARBONATE 17.7 mmol/l (23-25); SaO2 99.9 %; Tco2 18.8 mmol/l
[2024-10-29 15:53] LABS: allen test SATISFACTORY; o2 100 %; puncture site RADIAL LEFT
[2024-10-29 18:25] LABS: ABG PH 7.283 (7.35-7.45); ABG PO2 106.4 mmHg (80-100); ABG pCO2 43.4 mmHg (35-45); BASE EXCESS -6.4 mmol/l; BICARBONATE 20.1 mmol/l (23-25); SaO2 97.1 %; Tco2 21.4 mmol/l
[2024-10-29 18:36] LABS: allen test SATISFACTORY; puncture site RADIAL RIGHT
[2024-10-29 18:37] LABS: o2 70 %
[2024-10-30] VITALS (19 sets, daily range): BP systolic 85–164; BP diastolic 50–107; O2SAT 90–100
[2024-10-30] MEDS ORDERED: NOREPINEPHRINE BITARTRATE 8 MG in DEXTROSE 5 % IN WATER 250 ML IV SCH (08:30)
[2024-10-30 09:00] LABS: ABG PH 7.386 (7.35-7.45); ABG pCO2 34.6 mmHg (35-45); BASE EXCESS -3.9 mmol/l; BICARBONATE 20.3 mmol/l (23-25); SaO2 89.1 %; Tco2 21.4 mmol/l
[2024-10-30] MEDS ORDERED: BUMETANIDE 0.25 MG/ML VIAL 4ML IV PUSH SCH (09:00)
[2024-10-30] MEDS ORDERED: BUMETANIDE 2.5 MG/10 ML VIAL IV SCH (09:00)
[2024-10-30] MEDS ORDERED: ANIDULAFUNGIN 100 MG VIAL IV SCH (13:00)
[2024-10-30 16:19] LABS: ABG PO2 58.3 mmHg (80-100)
[2024-10-30 16:20] LABS: allen test SATISFACTORY; o2 70 %; puncture site RADIAL LEFT
[2024-10-30] MEDS ORDERED: ENOXAPARIN SODIUM 60 MG/0.6 ML SYRINGE SUBCUTANEO SCH (21:00)
[2024-10-31 04:00] VITALS: BP 106/64; O2SAT 100
[2024-10-31 07:28] VITALS: BP 109/59; O2SAT 100
[2024-10-31] MEDS ORDERED: MEROPENEM 500 MG/VIAL VIAL IV STA (08:42)
[2024-10-31] MEDS ORDERED: ENOXAPARIN SODIUM 40 MG/0.4 ML SYRINGE SUBCUTANEO SCH (09:00)
[2024-10-31] MEDS ORDERED: VASOPRESSIN 20 UNITS in 0.9 % SODIUM CHLORIDE 250 ML IV SCH (09:00)
[2024-10-31] MEDS ORDERED: ANIDULAFUNGIN 100 MG VIAL IV SCH (09:00)
[2024-10-31 10:07] LABS: ABG PH 7.333 (7.35-7.45); ABG PO2 325.8 mmHg (80-100); ABG pCO2 38.3 mmHg (35-45); BASE EXCESS -5.4 mmol/l; BICARBONATE 19.9 mmol/l (23-25); SaO2 99.9 %; Tco2 21.1 mmol/l
[2024-10-31 12:00] VITALS: BP 104/59; O2SAT 100
[2024-10-31] MEDS ORDERED: HYDROCORTISONE SODIUM SUCC/PF 50 MG/ML ML IV SCH (12:00)
[2024-10-31 12:21] LABS: allen test SATISFACTORY; o2 10 %; puncture site RADIAL LEFT
[2024-10-31 16:29] VITALS: BP 104/52; O2SAT 99
[2024-10-31] MEDS ORDERED: VANCOMYCIN HCL 1,000 MG VIAL IV NR ×2 (17:00→21:00)
[2024-10-31] MEDS ORDERED: HEPARIN SODIUM,PORCINE 5,000 UNITS/ML VIAL ONE (19:43)
[2024-10-31 20:05] VITALS: BP 150/79; O2SAT 100
[2024-10-31] MEDS ORDERED: VANCOMYCIN HCL 1,000 MG VIAL ONE (20:22)
[2024-10-31 23:19] VITALS: BP 126/88; O2SAT 100
[2024-11-01] VITALS (7 sets, daily range): BP systolic 105–121; BP diastolic 54–66; O2SAT 100
[2024-11-01 06:53] LABS: ALBUMIN 2.3 gm/dL (3.4-5.0); BILIRUBIN TOTAL 0.49 mg/dL (0.3-1.2); CALCIUM 8.1 mg/dL (8.5-10.1); CREATININE SERUM 2.77 mg/dL (0.70-1.30); GFR 22.13; GLOBULINA 2.6 G/DL (2.4-3.5); POTASSIUM 3.14 mEq/L (3.5-5.1); TOTAL PROTEIN 4.9 gm/dL (6.4-8.2)
[2024-11-01] MEDS ORDERED: POTASSIUM CHLORIDE IN WATER 40 MEQ/100 ML PIGGYBAG IV NR (08:00)
[2024-11-01] MEDS ORDERED: MEROPENEM 500 MG/VIAL VIAL IV SCH (09:00)
[2024-11-01 09:23] LABS: ABG PH 7.415 (7.35-7.45); ABG PO2 184.9 mmHg (80-100); ABG pCO2 34.3 mmHg (35-45); BASE EXCESS -2.3 mmol/l; BICARBONATE 21.5 mmol/l (23-25); SaO2 99.6 %; Tco2 22.6 mmol/l
[2024-11-01 10:01] LABS: MEAN CELL VOLUME 81.5 fL (80.0-100.00); MEAN CORPUSCULAR HGB CONC 32.5 g/dl (32.0-36.0); PLATELET COUNT 153 K/uL (150-450); RED BLOOD COUNT 2.67 M/uL (4.00-6.00); RED CELL DISTRIBUTION WIDTH 18.4 % (11.5-14.5)
[2024-11-01 10:02] LABS: HEMATOCRIT 21.7 % (39.0-48.0); HEMOGLOBIN 7.1 g/dL (13-16.00); MEAN CORPUSCULAR HEMOGLOBIN 26.5 pg (27.00-32.0)
[2024-11-01 10:23] LABS: allen test SATISFACTORY; o2 70 %; puncture site RADIAL RIGHT
[2024-11-02 04:00] VITALS: BP 95/62; O2SAT 100
[2024-11-02 07:28] VITALS: BP 110/61; O2SAT 100
[2024-11-02 12:00] VITALS: BP 117/69; O2SAT 100
[2024-11-02 14:35] LABS: ABG PH 7.342 (7.35-7.45); BASE EXCESS -5.4 mmol/l; BICARBONATE 19.6 mmol/l (23-25); SaO2 96.8 %; Tco2 20.8 mmol/l
[2024-11-02 14:55] LABS: HEMATOCRIT 31.5 % (39.0-48.0); HEMOGLOBIN 10.3 g/dL (13-16.00); MEAN CELL VOLUME 82.2 fL (80.0-100.00); MEAN CORPUSCULAR HEMOGLOBIN 26.8 pg (27.00-32.0); MEAN CORPUSCULAR HGB CONC 32.6 g/dl (32.0-36.0); PLATELET COUNT 173 K/uL (150-450); RED BLOOD COUNT 3.83 M/uL (4.00-6.00); RED CELL DISTRIBUTION WIDTH 16.9 % (11.5-14.5)
[2024-11-02 15:17] VITALS: BP 121/81; O2SAT 100
[2024-11-02 15:21] LABS: allen test SATISFACTORY; o2 60 %; puncture site RADIAL LEFT
[2024-11-02] MEDS ORDERED: HEPARIN SODIUM,PORCINE 5,000 UNITS/ML VIAL ONE (18:41)
[2024-11-02 20:26] VITALS: BP 89/67; O2SAT 79
[2024-11-02] MEDS ORDERED: HEPARIN SODIUM,PORCINE 500 UNITS/5 ML VIAL IV ONE (20:48)
[2024-11-02] MEDS ORDERED: VANCOMYCIN HCL 500 MG VIAL IV SCH (21:00)
[2024-11-02 21:06] LABS: ABG pCO2 32.1 mmHg (35-45); BASE EXCESS -7.1 mmol/l; BICARBONATE 17.3 mmol/l (23-25); SaO2 84.2 %; Tco2 18.3 mmol/l
[2024-11-02 21:58] LABS: ABG PO2 52.8 mmHg (80-100); allen test SATISFACTORY; puncture site RADIAL RIGHT
[2024-11-02 21:59] LABS: o2 100 %
[2024-11-02] MEDS ORDERED: 0.9 % SODIUM CHLORIDE 1,000 ML IV STA (22:53)
[2024-11-02 23:30] VITALS: BP 102/65; O2SAT 100
[2024-11-03] VITALS (10 sets, daily range): BP systolic 81–128; BP diastolic 57–93; O2SAT 90–100
[2024-11-03 08:32] LABS: HEMATOCRIT 29.6 % (39.0-48.0); MEAN CELL VOLUME 84.2 fL (80.0-100.00); MEAN CORPUSCULAR HGB CONC 32.8 g/dl (32.0-36.0); PLATELET COUNT 187 K/uL (150-450); RED BLOOD COUNT 3.52 M/uL (4.00-6.00); RED CELL DISTRIBUTION WIDTH 16.5 % (11.5-14.5)
[2024-11-03 08:40] LABS: HEMOGLOBIN 9.7 g/dL (13-16.00); MEAN CORPUSCULAR HEMOGLOBIN 27.5 pg (27.00-32.0)
[2024-11-03 10:50] LABS: ABG PH 7.287 (7.35-7.45); ABG PO2 270.4 mmHg (80-100); ABG pCO2 38.2 mmHg (35-45); BASE EXCESS -8.1 mmol/l; BICARBONATE 17.8 mmol/l (23-25); SaO2 99.8 %
[2024-11-03] MEDS ORDERED: ACETYLCYSTEINE 200 MG/ML 30ML VIAL IH SCH (14:11)
[2024-11-03] MEDS ORDERED: LEVALBUTEROL HCL 1.25 MG/3 ML SOLUTION IH NR (14:30)
[2024-11-03] MEDS ORDERED: NOREPINEPHRINE BITARTRATE 1 MG/ML AMPUL IV ONE (17:27)
[2024-11-03] MEDS ORDERED: NOREPINEPHRINE BITARTRATE 4 MG in DEXTROSE 5 % IN WATER 250 ML IV SCH (17:45)
[2024-11-03] MEDS ORDERED: HEPARIN SODIUM,PORCINE 5,000 UNITS/ML VIAL ONE (19:07)
[2024-11-03 19:16] LABS: allen test SATISFACTORY; o2 100 %; puncture site RADIAL LEFT
[2024-11-03] MEDS ORDERED: LEVALBUTEROL HCL 1.25 MG/3 ML SOLUTION IH SCH (20:00)
[2024-11-03] MEDS ORDERED: VANCOMYCIN HCL 500 MG VIAL IV NR (21:00)
[2024-11-03 23:47] LABS: HEMATOCRIT 31.9 % (39.0-48.0); HEMOGLOBIN 10.3 g/dL (13-16.00); MEAN CELL VOLUME 85.3 fL (80.0-100.00); MEAN CORPUSCULAR HEMOGLOBIN 27.5 pg (27.00-32.0); MEAN CORPUSCULAR HGB CONC 32.3 g/dl (32.0-36.0); PLATELET COUNT 200 K/uL (150-450); RED BLOOD COUNT 3.75 M/uL (4.00-6.00); RED CELL DISTRIBUTION WIDTH 16.6 % (11.5-14.5)
[2024-11-04] VITALS (17 sets, daily range): BP systolic 44–106; BP diastolic 24–80; O2SAT 92–100
[2024-11-04 08:24] LABS: ALBUMIN 2.2 gm/dL (3.4-5.0); BILIRUBIN TOTAL 1.05 mg/dL (0.3-1.2); CREATININE SERUM 3.17 mg/dL (0.70-1.30); GFR 18.94; GLOBULINA 2.1 G/DL (2.4-3.5); MAGNESIUM 1.9 mg/dL (1.8-2.4); POTASSIUM 3.67 mEq/L (3.5-5.1); TOTAL PROTEIN 4.3 gm/dL (6.4-8.2)
[2024-11-04 08:37] LABS: HEMATOCRIT 27.9 % (39.0-48.0); HEMOGLOBIN 9.2 g/dL (13-16.00); MEAN CELL VOLUME 85.4 fL (80.0-100.00); MEAN CORPUSCULAR HEMOGLOBIN 28.2 pg (27.00-32.0); PLATELET COUNT 167 K/uL (150-450); RED BLOOD COUNT 3.26 M/uL (4.00-6.00); RED CELL DISTRIBUTION WIDTH 16.3 % (11.5-14.5)
[2024-11-04 09:32] LABS: ABG PH 7.377 (7.35-7.45); ABG PO2 210.1 mmHg (80-100); ABG pCO2 29.9 mmHg (35-45); BASE EXCESS -6.6 mmol/l; BICARBONATE 17.2 mmol/l (23-25); SaO2 99.7 %; Tco2 18.1 mmol/l
[2024-11-04 13:28] LABS: allen test SATISFACTORY; o2 100 %; puncture site RADIAL LEFT
[2024-11-04] MEDS ORDERED: MIDAZOLAM HCL 100 MG in 0.9 % SODIUM CHLORIDE 100 ML IV SCH (14:00)
[2024-11-04 16:13] LABS: HEMATOCRIT 27.6 % (39.0-48.0); MEAN CELL VOLUME 85.8 fL (80.0-100.00); MEAN CORPUSCULAR HGB CONC 32.2 g/dl (32.0-36.0); PLATELET COUNT 198 K/uL (150-450); RED BLOOD COUNT 3.21 M/uL (4.00-6.00); RED CELL DISTRIBUTION WIDTH 16.8 % (11.5-14.5)
[2024-11-04 16:21] LABS: MEAN CORPUSCULAR HEMOGLOBIN 27.7 pg (27.00-32.0)
[2024-11-04 16:44] LABS: INR 2.9
[2024-11-04 16:56] LABS: PARTIAL THROMBOPLASTIN TIME 41.2 SECONDS (22.0-34.0); PROTHROMBIN TIME 29.2 SECONDS (9.0-11.5)
[2024-11-04] MEDS ORDERED: NOREPINEPHRINE BITARTRATE 8 MG in DEXTROSE 5 % IN WATER 250 ML IV SCH (17:15)
[2024-11-04] MEDS ORDERED: NOREPINEPHRINE BITARTRATE 1 MG/ML AMPUL IV ONE ×2 (17:18→20:49)
[2024-11-04] MEDS ORDERED: PHENYLEPHRINE HCL 20 MG in 0.9 % SODIUM CHLORIDE 250 ML IV SCH (19:15)
[2024-11-04 20:27] LABS: MEAN CELL VOLUME 90.1 fL (80.0-100.00); MEAN CORPUSCULAR HGB CONC 30.7 g/dl (32.0-36.0); RED BLOOD COUNT 3.22 M/uL (4.00-6.00); RED CELL DISTRIBUTION WIDTH 17.2 % (11.5-14.5)
[2024-11-04 20:31] LABS: MEAN CORPUSCULAR HEMOGLOBIN 27.6 pg (27.00-32.0)
[2024-11-04 20:32] LABS: HEMOGLOBIN 8.9 g/dL (13-16.00); PLATELET COUNT 203 K/uL (150-450)
[2024-11-04] MEDS ORDERED: EPINEPHRINE HCL/PF 4 MG in DEXTROSE 5 % IN WATER 250 ML IV SCH (20:45)
[2024-11-04 20:47] LABS: HEMOGLOBIN 8.9 g/dL (13-16.00)
[2024-11-04] MEDS ORDERED: PHENYLEPHRINE HCL 10 MG/ML AMPUL ONE (20:48)
[2024-11-05] VITALS: BP 42/23; O2SAT 98
[2024-11-05 01:00] VITALS: BP 89/46
[2024-11-05 02:00] VITALS: BP 51/23; O2SAT 94
[2024-11-05] MEDS ORDERED: PHENYLEPHRINE HCL 10 MG/ML AMPUL ONE (02:08)
[2024-11-05] MEDS ORDERED: EPINEphrine 10 ML DISP.SYRIN IV SCH (03:25)
== END 2024-11-05 14:54 | disposition expired | DRG 682 ==
LOC: ER 18:54 → ICU-2 23:23 → ICU 23:23 → SURH 10-15 19:41 → ICU 10-17 09:48
PROVIDERS: Anesthesiology; General Practice; Internal Medicine; Internal Medicine Critical Care Medicine; Internal Medicine Infectious Disease; Internal Medicine Nephrology; Student in an Organized Health Care Education/Training Program; ADMIT Internal Medicine; ATTEND Internal Medicine
PROC: BW21ZZZ Computerized Tomography (CT Scan) of Abdomen and Pelvis (ICD-10-PCS; 2024-10-10)
PROC: BW24ZZZ Computerized Tomography (CT Scan) of Chest and Abdomen (ICD-10-PCS; 2024-10-10)
PROC: BW28ZZZ Computerized Tomography (CT Scan) of Head (ICD-10-PCS; 2024-10-10)
PROC: BT4JZZZ Ultrasonography of Kidneys and Bladder (ICD-10-PCS; 2024-10-10)
PROC: B24BYZZ Ultrasonography of Heart with Aorta using Other Contrast (ICD-10-PCS; 2024-10-10)
PROC: 02HV33Z Insertion of Infusion Device into Superior Vena Cava, Percutaneous Approach (ICD-10-PCS; 2024-10-12)
PROC: 30243N1 Transfusion of Nonautologous Red Blood Cells into Central Vein, Percutaneous Approach (ICD-10-PCS; 2024-10-13)
PROC: 4A12X4Z Monitoring of Cardiac Electrical Activity, External Approach (ICD-10-PCS; 2024-10-15)
PROC: 5A1945Z Respiratory Ventilation, 24-96 Consecutive Hours (ICD-10-PCS; principal; 2024-10-17)
PROC: 0BH18EZ Insertion of Endotracheal Airway into Trachea, Via Natural or Artificial Opening Endoscopic (ICD-10-PCS; 2024-10-17)
PROC: B54DZZZ Ultrasonography of Bilateral Lower Extremity Veins (ICD-10-PCS; 2024-10-17)
PROC: 0BP1XDZ Removal of Intraluminal Device from Trachea, External Approach (ICD-10-PCS; 2024-10-19)
PROC: 5A1955Z Respiratory Ventilation, Greater than 96 Consecutive Hours (ICD-10-PCS; 2024-10-19)
PROC: 0BH18EZ Insertion of Endotracheal Airway into Trachea, Via Natural or Artificial Opening Endoscopic (ICD-10-PCS; 2024-10-19)
PROC: BW40ZZZ Ultrasonography of Abdomen (ICD-10-PCS; 2024-10-22)
PROC: 5A1D70Z Performance of Urinary Filtration, Intermittent, Less than 6 Hours Per Day (ICD-10-PCS; 2024-10-24)
PROC: 5A1D70Z Performance of Urinary Filtration, Intermittent, Less than 6 Hours Per Day (ICD-10-PCS; 2024-10-26)
PROC: 5A1D70Z Performance of Urinary Filtration, Intermittent, Less than 6 Hours Per Day (ICD-10-PCS; 2024-10-29)
PROC: BW24ZZZ Computerized Tomography (CT Scan) of Chest and Abdomen (ICD-10-PCS; 2024-10-30)
PROC: 0W9B3ZZ Drainage of Left Pleural Cavity, Percutaneous Approach (ICD-10-PCS; 2024-10-31)
PROC: 5A1D70Z Performance of Urinary Filtration, Intermittent, Less than 6 Hours Per Day (ICD-10-PCS; 2024-10-31)
PROC: 0DHA0UZ Insertion of Feeding Device into Jejunum, Open Approach (ICD-10-PCS; 2024-11-02)
PROC: 3E0H76Z Introduction of Nutritional Substance into Lower GI, Via Natural or Artificial Opening (ICD-10-PCS; 2024-11-02)
PROC: 5A1D70Z Performance of Urinary Filtration, Intermittent, Less than 6 Hours Per Day (ICD-10-PCS; 2024-11-03)
PROC: 05HN33Z Insertion of Infusion Device into Left Internal Jugular Vein, Percutaneous Approach (ICD-10-PCS; 2024-11-04)
PROC: 5A0222C Assistance with Cardiac Oxygenation, Supersaturated (ICD-10-PCS; 2024-11-05)
DX: N17.9 Acute kidney failure, unspecified (principal); A41.9 Sepsis, unspecified organism; I21.4 Non-ST elevation (NSTEMI) myocardial infarction; J69.0 Pneumonitis due to inhalation of food and vomit; J80 Acute respiratory distress syndrome; R65.21 Severe sepsis with septic shock; E87.20 Acidosis, unspecified; N39.0 Urinary tract infection, site not specified; I50.30 Unspecified diastolic (congestive) heart failure; R18.8 Other ascites; J90 Pleural effusion, not elsewhere classified; B49 Unspecified mycosis; E87.5 Hyperkalemia; D72.829 Elevated white blood cell count, unspecified; I48.91 Unspecified atrial fibrillation; I11.0 Hypertensive heart disease with heart failure; R79.82 Elevated C-reactive protein (CRP); L40.9 Psoriasis, unspecified; I95.9 Hypotension, unspecified; R13.10 Dysphagia, unspecified; I46.9 Cardiac arrest, cause unspecified